=== PATIENT | female | born 1995 | race Caucasian/White ===

== ENCOUNTER → 2022-03-20 | Outpatient (CLI) | payer MEDICAID, SELFPAY ==
[2022-03-20 16:51] LABS: Amphetamine Urine VISTA NEGATIVE (<1000 ng/mL); Barbiturate Urine VISTA NEGATIVE (< 200 ng/mL); Benzodiazepine Urine VISTA NEGATIVE (< 200 ng/mL); Cocaine Urine VISTA NEGATIVE (< 300 ng/mL); Ecstacy Urine VISTA NEGATIVE (< 500 ng/mL); Methadone Urine VISTA NEGATIVE (< 300 ng/mL); PCP Urine VISTA NEGATIVE (< 25 ng/mL); THC Urine VISTA NEGATIVE (< 50 ng/mL); Vista UDS pH Range 7
[2022-03-22 21:07] LABS: Chlamydia By Nucleic Acid AMP Negative (Negative)
[2022-03-23 15:11] LABS: Gonococcus By Nucleic Acid AMP Negative (Negative)
== END | disposition home or self-care (01) ==
LOC: LABSPEC 15:37
PROVIDERS: Visit Provider Obstetrics & Gynecology
DX: O09.90 Supervision of high risk pregnancy, unspecified, unspecified trimester (principal)
CPT/HCPCS: 80307; 87086; 87491; 87591

== ENCOUNTER → 2022-03-23 | Outpatient (CLI) | payer MEDICAID, SELFPAY ==
[2022-03-23 14:59] LABS: Absolute Lymphocyte Count 1.48 X10^3/uL (0.83-4.51); Absolute Neutrophil Count 4.3 X10^3/uL (2.0-7.7); Basophil# 0.02 X10^3/uL; Basophil% 0.3 % (0-1); Eosinophils% 1.6 % (0-5); Hemoglobin 11.1 g/dL (12.0-15.0); Lymphocyte # 1.48 X10^3/ul (0.83-4.51); Mean Corp Hgb Conc 32.6 g/dL (32-36); Mean Corpuscular Hgb 28.5 pg (27.0-32.0); Mean Corpuscular Volume 87.2 fL (81-99); Mean Platelet Vol. 9.2 fl (6.2-12.0); Monocyte# 0.51 X10^3/uL; Monocyte% 7.9 % (0-10); NRBC Flagged by Analyzer 0 % (0-5); Neutrophil % 66.9 % (47-70); Platelet Count 323 K/mm3 (150-450); RBC Distribution Width CV 13.2 % (11.6-14.6); RBC Distribution Width SD 41.4 fl (35.1-43.9); White Blood Count 6.4 K/mm3 (4.4-11.0)
[2022-03-23 15:14] LABS: NATERA MAILED SPECIMEN
[2022-03-23 15:16] LABS: Glucose Challenge Gest 1H 50g 139 mg/dL (70-140)
[2022-03-23 16:41] LABS: HIV - WCH Non-Reactive (Nonreactive); Hepatitis B Surface Antigen Non-Reactive (Nonreactive); Hepatitis C Antibody Non-Reactive (Nonreactive); Rubella IgG Reactive (Nonreactive); Syphilis Antibodies Non-reactive
== END | disposition home or self-care (01) ==
LOC: LAB 14:08
PROVIDERS: Referring Provider Obstetrics & Gynecology; Visit Provider Obstetrics & Gynecology
DX: O09.90 Supervision of high risk pregnancy, unspecified, unspecified trimester (principal); Z31.430 Encounter of female for testing for genetic disease carrier status for procreative management
CPT/HCPCS: 36415; 82950; 85025; 86703; 86762; 86780; 86803; 86850; 86900; 86901; 87340

== ENCOUNTER 2022-04-04 10:01 | Outpatient (CLI) | payer MEDICAID, SELFPAY ==
[2022-04-04 12:16] LABS: Glucose GTT-Gestational 1 Hr 142 mg/dL (<190)
[2022-04-04 12:20] LABS: Glucose GTT-Gestation. Fasting 80 mg/dL (<105)
[2022-04-04 13:15] LABS: Glucose GTT-Gestational 2 Hr 138 mg/dL (<165)
[2022-04-04 14:05] LABS: Glucose GTT-Gestational 3 Hr 99 L (<145)
== END 2022-04-04 23:59 | disposition home or self-care (01) ==
LOC: LAB 10:03
PROVIDERS: Visit Provider Obstetrics & Gynecology
DX: Z13.1 Encounter for screening for diabetes mellitus (principal)
CPT/HCPCS: 36415; 82951; 82952

== ENCOUNTER → 2022-08-01 | Outpatient (CLI) | payer MEDICAID, SELFPAY ==
[2022-08-01 11:17] LABS: Absolute Lymphocyte Count 2.11 X10^3/uL (0.83-4.51); Absolute Neutrophil Count 5.5 X10^3/uL (2.0-7.7); Basophil# 0.01 X10^3/uL; Basophil% 0.1 % (0-1); Eosinophil# 0.05 X10^3/uL; Eosinophils% 0.6 % (0-5); Hematocrit 29.7 % (37-47); Hemoglobin 9.7 g/dL (12.0-15.0); Lymphocyte # 2.11 X10^3/ul (0.83-4.51); Lymphocyte % 25.8 % (19-41); Mean Corp Hgb Conc 32.7 g/dL (32-36); Mean Corpuscular Hgb 29.3 pg (27.0-32.0); Mean Corpuscular Volume 89.7 fL (81-99); Mean Platelet Vol. 8.6 fl (6.2-12.0); Monocyte# 0.43 X10^3/uL; Monocyte% 5.3 % (0-10); NRBC Flagged by Analyzer 0 % (0-5); Neutrophil # 5.54 X10^3/uL (2.7-7.7); Neutrophil % 67.8 % (47-70); Platelet Count 354 K/mm3 (150-450); RBC Distribution Width CV 12.9 % (11.6-14.6); RBC Distribution Width SD 42.2 fl (35.1-43.9); Red Blood Count 3.31 M/mm3 (4.2-5.4); White Blood Count 8.2 K/mm3 (4.4-11.0)
[2022-08-01 11:41] LABS: Glucose Challenge Gest 1H 50g 127 mg/dL (70-140)
[2022-08-01 12:21] LABS: HIV - WCH Non-Reactive (Nonreactive); Syphilis Antibodies Non-reactive
[2022-08-01 12:27] LABS: ALB/GLOB Ratio 0.7 RATIO (0.9-2.4); AST(SGOT) 16 U/L (15-37); Alanine Aminotransfer ALT/SGPT 18 U/L (13-56); Albumin, Serum 2.6 g/dL (3.2-5.0); Alkaline Phosphatase 92 U/L (45-117); Anion Gap 7 (5-15); BUN 4 mg/dL (7-18); BUN/Creat Ratio 6.8 RATIO (10-20); Calcium,Total 9.1 mg/dL (8.5-10.1); Chloride 105 mmol/L (98-107); Creatinine, Serum 0.59 mg/dL (0.55-1.02); EST Glomerular Filtration Rate 130 mL/min (>60); Est Glom Filt Rate - Afr Amer 157 mL/min (>60); Globulin 3.8 g/dL (2.2-4.2); Glucose 121 mg/dL (74-106); Lipase 209 U/L (73-393); Potassium 3.4 mmol/L (3.5-5.1); Protein, Total 6.4 g/dL (6.4-8.2); Sodium Level 139 mmol/L (136-145)
== END | disposition home or self-care (01) ==
PROVIDERS: Obstetrics & Gynecology; Referring Provider Obstetrics & Gynecology; Visit Provider Obstetrics & Gynecology
DX: O99.210 Obesity complicating pregnancy, unspecified trimester (principal); R10.11 Right upper quadrant pain; Z13.1 Encounter for screening for diabetes mellitus; Z3A.00 Weeks of gestation of pregnancy not specified
CPT/HCPCS: 36415; 80053; 82950; 83690; 85025; 86703; 86780

== ENCOUNTER 2022-09-04 15:17 | Outpatient (CLI) | payer MEDICAID, SELFPAY ==
[2022-09-04 15:37] VITALS: BMI 33.8
[2022-09-04 15:48] VITALS: TEMP 36.3
[2022-09-04 15:49] VITALS: BP 122/73; PULSE 104
[2022-09-04 16:20] LABS: ROM Internal Control Test YES-OK TO RESULT pt. (Internal QC); ROM Patient Test Negative (Negative)
--- NOTE | 2022-09-05 13:00 | OB.TRI.PN_ITS ---
Progress Notes Date of Service: 09/04/22 Progress Note: Patient presents for triage evaluation secondary to possible SROM FHT: 130 Moderate variability reactive no decelerations category I tracing [place]: No Contractions Assessment and plan: Reactive NST, reassuring maternal and status patient discharged to home to follow-up at next appointment. See problem list details for additional plan information. Laboratory Studies: Laboratory Tests 09/04/22 Range/Units 15:45 Vag Amniotic Fld Detect Negative (Negative) Charges/Coding Multi Select Codes Urinary/Genital Urinary/Genital CPT Codes: 76424-85 non-stress test Interp
== END 2022-09-04 16:42 | disposition home or self-care (01) ==
LOC: WPOUT 15:27 → WP 15:28
PROVIDERS: Referring Provider Advanced Practice Midwife; Visit Provider Advanced Practice Midwife
DX: O09.899 Supervision of other high risk pregnancies, unspecified trimester (principal); Z3A.00 Weeks of gestation of pregnancy not specified
CPT/HCPCS: 59025; 59050; 84112

== ENCOUNTER → 2022-09-13 | Outpatient (CLI) | payer MEDICAID, SELFPAY | END | disposition home or self-care (01) | LOC: LABSPEC 10:50 | PROVIDERS: Referring Provider Obstetrics & Gynecology; Visit Provider Obstetrics & Gynecology | DX: O09.90 Supervision of high risk pregnancy, unspecified, unspecified trimester (principal); Z3A.00 Weeks of gestation of pregnancy not specified | CPT/HCPCS: 87081 ==

== ENCOUNTER 2022-10-01 04:55 | Inpatient (IN) | payer MEDICAID, SELFPAY ==
[2022-10-01] VITALS (25 sets, daily range): BP systolic 97–127; BP diastolic 48–84; PULSE 54–134; RESP 16–20; TEMP 35.9–36.7; O2SAT 98–100; BMI 33.5
--- NOTE | 2022-10-01 05:59 | HP.PCM_ITS ---
History and Physical MR#: [id number] Acct: [id number] Name:SHARLENE SPANN Rep #: [id number] : 1995 ? ? Provider: Dr. Elisa Collins MD Age/Sex:? 26/F ? ? Location: [facility] – [place] Status: Signed Intake Vital Signs ? 03/20/2214:39 09/28/2308:51 09/28/2309:01 Height 5 ft 2 in 5 ft 3 in 5 ft 3 in Weight: ? 188 lb 6 oz ? BMI ? 33.3 ? BP ? 104/71 ? Intake Visit Reasons:?est ob 39w (scheduled c/s at 39w) Chief Complaint: 39 Week OB Brake Operator Required: No Is patient in pain?: No Allergies cephalexin [From Keflex] Allergy (Intermediate, Verified 09/28/22 09:50) Rash Medications sertraline 50 mg tablet (Zoloft) 50 mg PO DAILY 09/20/22 [History Confirmed 09/28/22] Last Menstrual Period: 01/11/22 Zika: Zika virus screening: Negative : No PFSH PFSH Medical History? Abnormal glucose affecting Anemia Surgical History? History of kidney surgery Hx of cholecystectomy Hx of dilation and curettage Hx of tonsillectomy Social History? adopted:? No household members:? significant other and children housing:? house number of children:? 2 current occupational status:? 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 No pets and animals:? No history of recent travel:? No sexually active:? Yes Smoking Status:? Former smoker quit date: 01/18/22 pack-years: 2 alcohol intake:? never substance use type:? does not use well-balanced diet:? daily or most days caffeine:? No eating out:? rarely or never during the past year weight has:? decreased > 10 lbs what type of physical activity do you participate in:? none boyd/yarsanism:? None seatbelt use:? sometimes do you feel safe at home:? Yes additional social history:? BF Abdi Raymond- hot strip finisher History ? ? ? 4 ?D Elective abortions ? Hx Para ? ? ? 2 ? Spontaneous abortions ? ? ? 1 Hx # Term Pregnancies ? Ectopic pregnancies ? Hx # Pregnancies ? Multiple births ? # of living children ? ? ? 2 Past Pregnancies Del. Date Name GA/Weeks Outcome Route Bth Weight Gen Labor Lgth Anesthesia Del Locatn Provider FOB 09/14/15 Miscarriage <8 weeks ? 02/25/18 Akash 38 live - full term 7#7o z Male ? epidural [facility] Dr. Hernando Hauser 07/01/19 Anjum 38 live - full term 7#10 oz Female ? spinal [facility] Dr. Hernando Hauser Delivery Date: 02/25/18? Last Updated by: Bhavani Staton ? ? ? cs due to breech Delivery Date: 07/01/19? Last Updated by: Bhavani Staton ? ? ? planned cs HPI est ob 39w (scheduled c/s at 39w) Details: SHARLENE CASPER is a 26 year old who presents for routine OB visit. OB Visit JAVAN Calculator ? Estimated Delivery Date Method Current WG Current Estimate 10/08/22 Ultrasound #1 38w 4d Other Estimates 10/18/22 LMP (Certain) 37w 1d Expected Delivery Route/Plan RLTCS Specific Issue/Plans Covid status: unvaccinated Flu vaccine: unvaccinated, declines Tdap vaccine: declined Rhogam: na LARC form signed: movement and labor precautions reviewed. Problem list reviewed and updated with the most current plan of care details and appropriate orders placed.? Relevant counseling for the gestational age provided. Continue routine care and follow up unless otherwise noted in visit notes/problem list details Initial Weight:?Not Recorded Date -?-?-?-?-?-?-?-?-?-?-?-?- EGA Weight BP Urine Prot -?-?-?-?-?-?-?-?-?-?-?-?- Glucose FHR FuHt Pres Dilation -?-?-?-?-?-?-?-?-?-?-?-?- Effaced St Visit Note 03/20/22-?-?-?-?-?-?-?-?-?-?-?-?- 11w 1d 189 lb 4 oz 115/73 -?-?-?-?-?-?-?-?-?-?-?-?- ? -?-?-?-?-?-?-?-?-?-?-?-?- ? ? JV- CRL measuring ahead by over a week. new javan given. wants genetic and carrier testing. 04/19/22-?-?-?-?-?-?-?-?-?-?-?-?- 15w 3dA 189 lb 8 oz 113/67 Negative -?-?-?-?-?-?-?-?-?-?-?-?- Negative 147 ? ? -?-?-?-?-?-?-?-?-?-?-?-?- ? ? JV- still having nausea on zofran. She will try the [facility] unisom + b6. normal NIPT and carrier testing. 07/12/22-?-?-?-?-?-?-?-?-?-?-?-?- 27w 3d 186 lb 6 oz 114/74 Negative -?-?-?-?-?-?-?-?-?-?-?-?- Negative 145 ? ? -?-?-?-?-?-?-?-?-?-?-?-?- ? ? SM_ no vb lof good fm no regular ctx plan cbc gct next visit and scheduled cs 08/01/22-?-?-?-?-?-?-?-?-?-?-?-?- 30w 2d 187 lb 2 oz 113/78 Negative -?-?-?-?-?-?-?-?-?-?-?-?- Negative 145 ? ? -?-?-?-?-?-?-?-?-?-?-?-?- ? ? JV- pt is having some RUQ pain, has had jessika after last . will order cmp and lipase, recommend low fat diet and increase hydration, She states that tums work, will order pepcid. normal gct but is anemic with hg 9.7. recommended OTC twice a day iron 09/13/22-?-?-?-?-?-?-?-?-?-?-?-?- 36w 3d 188 lb 134/84 Negative -?-?-?-?-?-?-?-?-?-?-?-?- Negative 147 ? Cephalic 0-?-?-?-?-?-?-?-?-?-?-?-?- ? ? JV- no lof ,vaginal bleeding, or dec fm. did not do labs because felt better. briefly discussed and how that would look. she is leaning toward rpt section was just worried about being strapped down and feeling trapped. talked about soothing music, no straps, etc, 09/20/22-?-?--?-?-?-?-?-?-?-?-?-?- 37w 3d 187 lb 6 oz 124/83 Negative -?-?-?-?-?-?-?-?-?-?-?-?- Negative 145 37 Cephalic -?-?-?-?-?-?-?-?-?-?-?-?- ? ? SM- no vb lof good fm no regular ctx 09/28/22-?-?-?-?-?-?-?-?-?-?-?-?- 38w 4d 188 lb 6 oz 104/71 Negative -?-?-?-?-?-?-?-?-?-?-?-?- Negative 140 38 Cephalic -?-?-?-?--?-?-?-?-?-?-?-?- ? ? SM- no vb lof good fm no regular ctx ACOG First Trimester First Trimester: Desire for , Alcohol, Tobacco Cessation, Illicit/Recreational Drug/Substance Use, Intimate Partner Violence, Barriers to care, Unstable Housing, Communication Barriers, Environmental/Work Hazards, Anticipated Course of Care, Toxoplasmosis Precations, Use of Any medications, Sexual activity, Exercise, Dental Care, Sauna/Hot tub use, Seat Belt use, Childbirth classes/Hospital facilities, , Travel, Indications for Ultrasound and Screening for Aneuploidy Second Trimester Second Trimester: Signs and Symptoms of Labor, Selecting a care provider, Reproductive Life Planning & Contreception, Care Planning, Depression/Anxiety and Intimate Partner Violence; Discussed Tobacco Cessation Third Trimester Third Trimester: Pain Management Plans, Labor support person(s), Immediate Larc, Movement Monitoring, Signs and Symptoms of Preeclampsia and [place] [employer] [facility] Diagnostics Diagnostics: ?? ? Blood Type O POSITIVE ?? ? Antibody Screen NEGATIVE ?? ? Gest Glucose Tolerance ?MG/DL ?? ? Glucose 1 Hr 50 gm 127 mg/dL (70-140) ?? ? HIV 1&2 Antibody Non-Reactive? (Nonreactive) ?? ? Rubella IgG Antibody Reactive? (Nonreactive) ?? ? Hgb 9.7 g/dL (12.0-15.0)? L ?? ?D Hct 29.7 % (37-47)? L ?? ? Chlamydia DNA (HILARIA) Negative? (Negative) ?? ? N.gonorrhoeae DNA (HILARIA) Negative? (Negative) Details: HIV: Urine Culture: Sequential Screen: NIPT Screen: ROS Const Reports system reviewed and no additional complaints, except as documented Card Reports system reviewed and no additional complaints, except as documented Resp Reports system reviewed and no additional complaints, except as documented GI Reports system reviewed and no additional complaints, except as documented and Reports nausea Reports system reviewed and no additional complaints, except as documented Musc Reports system reviewed and no additional complaints, except as documented Exam Const General: cooperative, healthy appearing, comfortable and anxious [facility] Head: normal to inspection Nose: external nose normal Face and sinus: normal facial exam Neck Neck: normal visual inspection, full ROM and no lymphadenopathy Thyroid: thyroid normal Chest Chest palpation & inspection: normal inspection of the chest Resp Effort & Inspection: normal respiratory effort GI Inspection: normal to inspection Palpation: soft and other (gravid uterus) Other: vertex and appropriate size for gestational age Other: Cervical Exam: Extrem General: pedal edema Results POC Urinalysis 2 Dip? (Clinic) Office Urine Glucose Negative ? ? Last Edit by Whit Rivers on 09/28/22 10:04 Office Urine Protein Negative ? ? Last Edit by Whit Rivers on 09/28/22 10:04 Coding Level of Care Code OB Routine Diagnoses Supervision of high risk , antepartum? O09.90 Anemia? D64.9 Right upper quadrant pain? R10.11 Obesity affecting ? O99.210 ? Z3A.38 ? ? ? Weeks of gestation: 38 weeks History of ? 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 F41.9 Assessment and Plan Assessment and Plan (1) Supervision of high risk , antepartum: ?Status:?Acute ?Comment: PRR JAVAN 10/07/22 girl Anjum Lancasterlandry Abdi (2) Anemia: ?Status:?Acute ?Comment: Repeat 4 weeks. (3) Right upper quadrant pain: ?Status:?Acute (4) Obesity affecting : ?Status:?Acute ?Comment: nl 3 hr gtt encouraged healthy weight gain. (5) : ?Status:?Acute ?Qualifiers: ?Weeks of gestation:?38 weeks? Qualified Code(s):?Z3A.38 - 38 weeks gestation of ?Comment: NIPT low risk, carrier testing neg. , abnormal 1 HR GCT, 04/04 Nl 3 HR GTT, nl growth, nl 1 hr GTT 07/31. GBS neg, (6) History of : ?Status:?Acute ?Comment: X's 2. Breech in first ,repeat second, desires 3rd rpt at 39 weeks - 10/01/22 @ 7 am (7) Post depression: ?Status:?Acute ?Comment: Off medication x's 1 year (8) Anxiety: ?Status:?Acute ?Comment: zoloft start, encouraged counseling. ? ? ? Orders: Orders POC Urinalysis 2 Dip? (Clinic) Today ? ? plan RLTCS UPDATE- I have seen the patient and performed any clinically relevant updates to the history and physical exam. Elisa Collins MD
--- NOTE | 2022-10-01 05:59 | EX.PCM.OBRPT ---
Assessment & Plan (1) Supervision of high risk , antepartum: COMMENT: PRR JEROME 10/07/22 girl Jose BLAS Anjum Bustos (2) Anemia: COMMENT: Repeat 4 weeks. (3) Right upper quadrant pain: (4) Obesity affecting : COMMENT: nl 3 hr gtt encouraged healthy weight gain. (5) : QUALIFIERS: Weeks of gestation: 38 weeks Qualified Code(s): Z3A.38 - 38 weeks gestation of COMMENT: NIPT low risk, carrier testing neg. , abnormal 1 HR GCT, 04/04 Nl 3 HR GTT, nl growth, nl 1 hr GTT 07/31. GBS neg, (6) History of : COMMENT: X's 2. Breech in first ,repeat second, desires 3rd rpt at 39 weeks - 10/01/22 @ 7 am (7) Post depression: COMMENT: zoloft (8) Anxiety: COMMENT: zoloft encouraged counseling. (9) delivery delivered: COMMENT: RLTCS girl Jose 39 SM Maternal Data Information JEROME Calculator Estimated Delivery Date Method Current WG Current Estimate 10/08/22 Ultrasound #1 39w 1d Other Estimates 10/18/22 LMP (Certain) 37w 5d Final JEROME Source: LMP Details Operative Information Date of Procedure: 10/01/22 Pre-Operative Diagnosis: Previous Post-Operative Diagnosis: same Indications for : Repeat Elective Indications Narrative: Surgeon: Elisa Collins MD Classification: Scheduled Procedure Type: low transverse Type of Anesthesia: Spinal Special Medications: none Antibiotic Given: Ancef 2 grams IV x1 Drain: Palomares to straight drain Estimated Blood Loss: 400 Fluids Replaced: crystalloid Findings Description of Procedure: Spinal anesthesia was placed without difficulty. Palomares catheter was placed. The patient was placed in the dorsal supine position with leftward tilt. Patient was prepped and draped in the normal sterile fashion. Pfannenstiel skin incision was made with the scalpel and carried through to the underlying layer of fascia with the scalpel. Fascia was nicked in the midline and the incision extended laterally. The rectus bellies were dissected off superiorly and inferiorly with out complication both sharply and bluntly. The peritoneum was entered digitally. The incision was stretched and a low transverse uterine incision was made with the scalpel. The 's head was delivered atraumatically followed by the anterior and posterior shoulders without complication the rest of the delivered. The cord was clamped and cut and the infant was handed off to awaiting nurse. The placenta was delivered spontaneously immediately following and was noted to be intact and have a three-vessel cord. The uterus was exteriorized cleared of all clots and debris, and the incision was closed in a single layer closure using #1 Monocryl. The ovaries and fallopian tubes were noted to be within normal limits. The uterus was returned to the maternal abdomen and gutters were cleared of all clots and debris. The peritoneum was closed with 3-0 Monocryl in a running fashion. Gloves were changed prior to fascial closure. Fascia was closed with 0 PDS in a running fashion. Subcutaneous tissue was copiously irrigated and the skin was closed with 3-0 Monocryl in a subcuticular fashion. Mepilex dressing was applied without complication. Patient was taken to recovery in stable condition. It was discussed with the patient that based on the clinical information obtained during this encounter, combined with her history, at this time I would recommend cesareans for future deliveries if further pregnancies are desired. Amniotic Membrane Rupture Type: Artificial Amniotic Fluid Description: Clear Placenta Disposition: [facility] Cord Vessel Description: 3 Vessels Delayed Cord Clamping: Yes Complications Risks of Surgery Discussed w/Patient: Bleeding, Infection, Need for Future C-Sections and Injury to surrounding structure(s) including bowel and bladder Vaginal Delivery Complication Complications: None Admit VTE Documentation VTE Present on Admission: No VTE Mechan Device Prophylaxis: SCD's Procedures Urinary/Genital [id number]: 17126 delivery+PP Care([facility])
--- NOTE | 2022-10-01 06:01 | DCINST_ITS ---
Discharge Instructions Diet Discharge Diet: No restrictions Activity Discharge Activity: Return to Normal Activity, May Drive (when pain free and off narcotic pain meds), May Shower and May Take a Tub Bath (in 4 weeks) May resume sexual activity in: 6 weeks Weight Bearing Status: Full weight bearing Lifting Restrictions: under 30 lbs for 6 weeks Dressing / Incision Call your doctor if your incision/area has: Continuous Slow Oozing, Sudden Increased Bleeding, Increased Pain/ Swelling, Increased Redness, Foul Smelling Discharge and - Call your doctor if you observe: Fever of 101 or Higher, Using more than 1 pad per hour, Shortness of breath, Chest pain and Uncontrolled pain Suture Line Care: Avoid Pulling/Pushing and Avoid Pinching/Bending Change Dressing in: 1 week (leave open to air after removed) Remove Dressing in: 1 week (if present) Cleanse incision/area with: Soap & Water and Keep Dressing Clean & Dry Follow Up Care Please Follow Up With: Elisa Collins MD When: Call to make an appointment with your doctor for a postop visit in 2 and 6 weeks. Test Results: Test results from this visit will be discussed in further detail at your follow- up appointment, if applicable. Discharge Plan Admission Admit Date/Time: 10/01/22 04:55 Attending Provider: Elisa Collins Primary Care Provider: Maximiliano PhysicianNishi Primary Discharge Orders/Prescriptions Prescriptions: New oxycodone-acetaminophen [Percocet] 5-325 mg tablet 1 tab PO Q6H PRN (Reason: pain) 7 Days Qty: 20 0RF naproxen [naproxen] 500 mg tablet 500 mg PO BID PRN PRN (Reason: Pain) Qty: 30 1RF Continued sertraline [Zoloft] 50 mg tablet 50 mg PO DAILY Rx Instructions: 1/2 pill Referrals / Follow Up: Care PhysicianNishi Primary [Primary Care Provider] -
[2022-10-01 06:38] LABS: Absolute Neutrophil Count 5.6 X10^3/uL (2.0-7.7); Basophil# 0.03 X10^3/uL; Basophil% 0.4 % (0-1); Eosinophil# 0.05 X10^3/uL; Eosinophils% 0.6 % (0-5); Hematocrit 30.1 % (37-47); Hemoglobin 9.7 g/dL (12.0-15.0); Lymphocyte % 25.7 % (19-41); Mean Corp Hgb Conc 32.2 g/dL (32-36); Mean Corpuscular Volume 89.9 fL (81-99); NRBC Flagged by Analyzer 0 % (0-5); Neutrophil # 5.62 X10^3/uL (2.7-7.7); Neutrophil % 65.7 % (47-70); Platelet Count 294 K/mm3 (150-450); RBC Distribution Width CV 14.1 % (11.6-14.6); RBC Distribution Width SD 45.8 fl (35.1-43.9); Red Blood Count 3.35 M/mm3 (4.2-5.4); White Blood Count 8.6 K/mm3 (4.4-11.0)
[2022-10-01] MEDS: Sodium Citrate/Citric Acid 30 ML UDC PO (06:55)
[2022-10-01] MEDS: Acetaminophen 500 MG Tablet PO ×3 (06:55→18:27)
[2022-10-01] MEDS: Clindamycin 900 MG/50 ML BAG 75 MG IV (07:15)
[2022-10-01 07:17] LABS: Syphilis Antibodies Non-reactive
[2022-10-01] MEDS: Ketorolac 30 MG/ML Syringe IV ×3 (09:10→21:57)
[2022-10-01] MEDS: Lactated Ringers 1,000 ML 50 ML IV (12:16)
[2022-10-01] MEDS: 0.9% Saline Lock 10 ML Syringe IV ×2 (17:40→21:57)
[2022-10-01] MEDS: Sertraline 50 MG Tablet PO (23:00)
[2022-10-02 00:39] VITALS: BP 102/55; PULSE 68; RESP 16; TEMP 36.8
[2022-10-02] MEDS: Acetaminophen 500 MG Tablet PO ×2 (00:43→07:11)
[2022-10-02] MEDS: Ketorolac 30 MG/ML Syringe IV (03:24)
[2022-10-02] MEDS: 0.9% Saline Lock 10 ML Syringe IV (03:24)
[2022-10-02 03:34] VITALS: BP 104/66; PULSE 66; RESP 16; TEMP 36.4; O2SAT 99
[2022-10-02 05:21] LABS: Absolute Neutrophil Count 6.8 X10^3/uL (2.0-7.7); Basophil# 0.04 X10^3/uL; Basophil% 0.4 % (0-1); Eosinophil# 0.12 X10^3/uL; Eosinophils% 1.2 % (0-5); Hematocrit 30.2 % (37-47); Hemoglobin 9.6 g/dL (12.0-15.0); Lymphocyte % 23.4 % (19-41); Mean Corp Hgb Conc 31.8 g/dL (32-36); Mean Corpuscular Hgb 28.8 pg (27.0-32.0); Mean Corpuscular Volume 90.7 fL (81-99); Mean Platelet Vol. 8.9 fl (6.2-12.0); Monocyte# 0.57 X10^3/uL; Monocyte% 5.8 % (0-10); NRBC Flagged by Analyzer 0 % (0-5); Neutrophil # 6.76 X10^3/uL (2.7-7.7); Neutrophil % 68.9 % (47-70); Platelet Count 279 K/mm3 (150-450); RBC Distribution Width CV 14.1 % (11.6-14.6); RBC Distribution Width SD 46.4 fl (35.1-43.9); Red Blood Count 3.33 M/mm3 (4.2-5.4); White Blood Count 9.8 K/mm3 (4.4-11.0)
--- NOTE | 2022-10-02 07:23 | PN.OBGYN_ITS ---
Subjective Subjective Patient doing well without complaints. Tolerating PO. Ambulating and voiding without difficulty. Feeding well. Denies chest pain, shortness of breath, calf pain/swelling, fevers, chills, lightheadedness. Objective Data Objective Data Vital Signs: Vital Signs Temp Pulse Resp BP Pulse Ox O2 Del Method 97.6 F L 66 16 104/66 99 Room Air 10/02/22 03:34 10/02/22 03:34 10/02/22 03:34 10/02/22 03:34 10/02/22 03:34 10/02/22 03:34 Oxygen Delivery Method Room Air Weight: 189 lb 2 oz Body Mass Index (BMI) 33.5 Intake & Output: Intake and Output for Last 24 Hours 09/30/22 10/01/22 10/02/22 23:59 23:59 23:59 Intake Total 372.33 / 372.33 Output Total 3825 / 3825 Balance -3452.67 / -3452.67 Lab / Micro Data Attestation: I reviewed the patient's lab results. Result Diagrams: 10/02/22 05:10 Labs: Laboratory Results - last 24 hr 10/02/22 05:10: WBC 9.8, RBC 3.33 L, Hgb 9.6 L, Hct 30.2 L, MCV 90.7, MCH 28.8, MCHC 31.8 L, RDW Std Deviation 46.4 H, RDW Coeff of Giancarlo 14.1, Plt Count 279, MPV 8.9, Immature Gran % (Auto) 0.300, Neut % (Auto) 68.9, Lymph % (Auto) 23.4, [place] % (Auto) 5.8, Eos % (Auto) 1.2, Baso % (Auto) 0.4, Absolute Neuts (auto) 6.8, Absolute Lymphs (auto) 2.30, Nucleated RBC % 0 ROS Constitutional Constitutional: Reports systems reviewed and no addt'l complaints, except as documented; Denies anorexia or headache(s) Cardiovascular Cardiovascular: Reports systems reviewed and no addt'l complaints, except as documented; Denies dizziness, dyspnea, nausea or tachypnea Respiratory/Chest Respiratory/Chest: Reports systems reviewed and no addt'l complaints, except as documented; Denies cough, dyspnea, shortness of breath at rest or tachypnea Gastrointestinal Gastrointestinal: Reports systems reviewed and no addt'l complaints, except as documented; Denies abdominal pain, constipation or nausea Genitourinary Genitourinary: Reports systems reviewed and no addt'l complaints, except as documented; Denies burning urination, difficulty urinating, dysuria, urinary frequency or urinary incontinence Musculoskeletal Musculoskeletal: Reports systems reviewed and no addt'l complaints, except as documented Integumentary Integumentary: Reports systems reviewed and no addt'l complaints, except as documented Neurologic Neurologic: Reports systems reviewed and no addt'l complaints, except as documented; Denies abnormal speech, dizziness or headache(s) Psychiatric Psychiatric: Reports systems reviewed and no addt'l complaints, except as documented Endocrine Endocrinology: Reports systems reviewed and no addt'l complaints, except as documented Hematologic/Lymphatic Hematologic/Lymphatic: Reports systems reviewed and no addt'l complaints, except as documented Physical Exam Const alert, oriented x3 and no apparent distress Neck full ROM Resp normal respiratory effort, normal air movement and no retractions Effort and Inspection: able to speak in complete sentences and symmetric chest movement GI soft to palpation Inspection: incision intact Bladder / Kidney Exam: bladder normal to palpation Uterus Palpation: uterus fundus firm (U) Extremity normal to inspection and full ROM Psych mental status grossly normal, thought process normal and cooperative Assessment & Plan (1) delivery delivered: COMMENT: JESSICA girl Jose 39 SM PLAN: s/p LTCS PPD # 1 1. routine post care 2. breast feeding- support given 3. rh positive 4. rubella immune 5. discharge home (2) Post depression: COMMENT: zoloft PLAN: stable (3) Anxiety: COMMENT: zoloft encouraged counseling. Charges/Coding Multi Select Codes Urinary/Genital Urinary/Genital CPT Codes: No Charge
--- NOTE | 2022-10-02 07:26 | DCINST_ITS ---
Discharge Instructions Diet Discharge Diet: No restrictions Activity May resume sexual activity in: 6 weeks Weight Bearing Status: Full weight bearing Dressing / Incision Call your doctor if your incision/area has: Continuous Slow Oozing, Sudden Increased Bleeding, Increased Pain/ Swelling, Increased Redness, Foul Smelling Discharge and - Call your doctor if you observe: Fever of 101 or Higher, Using more than 1 pad per hour, Shortness of breath, Chest pain and Uncontrolled pain Suture Line Care: Avoid Pulling/Pushing and Avoid Pinching/Bending Remove Dressing in: 1 week Cleanse incision/area with: Soap & Water and Keep Dressing Clean & Dry Follow Up Care Please Follow Up With: Elisa Collins MD When: in 2 weeks for incision check and at 6 weeks for visit Test Results: Test results from this visit will be discussed in further detail at your follow- up appointment, if applicable. Discharge Plan Admission Admit Date/Time: 10/01/22 04:55 Attending Provider: Elisa Collins Primary Care Provider: Care Physician,No Primary Discharge Orders/Prescriptions Prescriptions: New oxycodone-acetaminophen [Percocet] 5-325 mg tablet 1 tab PO Q6H PRN (Reason: pain) 7 Days Qty: 20 0RF naproxen [naproxen] 500 mg tablet 500 mg PO BID PRN PRN (Reason: Pain) Qty: 30 1RF Continued sertraline [Zoloft] 50 mg tablet 50 mg PO DAILY Rx Instructions: 1/2 pill Referrals / Follow Up: Care Physician,No Primary [Primary Care Provider] - Disposition Disposition (needs filled in before D/C Order can be placed): Home, Self Care
[2022-10-02 08:15] VITALS: BP 109/70; PULSE 83; RESP 16; TEMP 36.5; O2SAT 97
[2022-10-02] MEDS: Ibuprofen 600 MG Tablet PO (09:28)
[2022-10-02 12:00] VITALS: BP 112/75; PULSE 77; RESP 16; TEMP 36.8; O2SAT 98
--- NOTE | 2022-10-02 16:47 | CASEMGMT ---
Social Work Assessment Labor and Delivery Unit Patient Address: [address] [place], [place] [address] Phone number: [phone] Date of Referral: 10/01/2022 Time of Referral: 1920 Referred By: Dr. Elisa Collins Date of Intervention: 10/02/2022 Time of Intervention: Approximately 2768-7251 Reason for Referral: History of depression, anxiety History obtained from: Medical records and mother of baby (MOB) Kacey Beltran; father of baby (FOB) Abdi Raymond present for conversation. Household composition: MOB, FOB and MOB's 2 older children. Home situation is reported as safe and adequate. Patient's parent/guardian status: CEE is a 26-year-old single female, involved with the FOB Abdi Raymond for the last 2 years. Upon admission MOB denied concerns of domestic violence. No indication during this assessment. Infant is the first child for MOB and FOB together. The third child for MOB. Minor children in the home include: Akash (02/25/2018) and Viviana (07/01/2019) Analisa-father is reported as Tyler Analisa and not involved. infant girl Susu Raymond (10/01/2022) and father is Abdi Raymond. Medical History: CEE is 4, para 2 now 3 after delivering infant girl. care started at 11 weeks with the noted 7 visits between 11 and 38 weeks. There was a gap in care between 15 and 27 weeks. Delivery via section at 39 weeks. 's Apgars were 8 and 9 at 1 and 5 minutes of life respectively. weight 3285 g. Plan to use pediatric consultants for aftercare of the baby. Educational Status: CEE is a high school graduate. No reported concerns with C or comprehension. 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 Supplies: MOB and FOB report to have necessary supplies to care for the baby including car seat and a safe sleep space. Childcare/Caregiver(s): MOB and FOB will be the primary caregivers. MOB's and will be brim stiffener when MOB returns to work has MOB's daycare centers getting rid of the term. Transportation: No reported concerns with transportation. Both parents drive. Programs/Agencies Involved: S for medical and food card. CEE has a history of WIC though is not current. MOB excepted information on help me grow but declined a referral. Children Services/Legal Issues: MOB and FOB deny any legal issues. MOB denies any history of children services involvement. Behavioral Health Issues: Mental Health History: MOB reports a history of being an anxious person and having anxiety after second child was born. MOB reports has been treated with sertraline and this medication is working well. Has been on this medication throughout the and plans to stay on it in the timeframe. MOB does have a history of counseling but not currently. Would be willing to return if needed. Substance Use History: MOB denies any type of substance use history. Does not use tobacco. Family History: Not discussed. Drug Screens: Maternal drug screen negative on 03/20/2022. No testing on infant. Family/Social Stressors: No reported stressors at this time. Support Systems: MOB reports good support from the FOB, MOB's parents and the FOB's mother. FOB is to be off work for 1 week to help with the transition home. Depression/Shaken Baby/Safe Sleeping: Safe sleeping and shaken baby reviewed. Written material provided for home-going. Reviewed mood and anxiety disorders, risk factors, and that both mothers and fathers can be at risk for this complication. ASSESSMENT: Met with MOB and FOB in room, introducing to self and social work role. Parents willing and agreeable to speak with group social worker. MOB with good eye contact. MOB appearing relaxed and reporting to feel mood and anxiety is stable at this point. MOB reports plan to remain on Zoloft and reports willingness to return back to counseling if needed in the future. MOB and FOB reported to have necessary supplies to care for the infant, denies any concerns about basic needs, housing or transportation. MOB reports to feel she has good support in place. No voiced concerns by staff regarding parent-child interactions or bonding. Provided [facility] resource list and a packet on mood and anxiety disorders. PLAN: MOB and infant will discharge home with resources provided for home-going. No other services requested or indicated. -SLICK Torres MSW *This note was generated with [employer] software. It may contain incorrect words, spelling, and punctuation that were not noted in review of the chart prior to signing*
== END 2022-10-02 13:40 | disposition home or self-care (01) | DRG 540 ==
PROVIDERS: Admitting Provider Obstetrics & Gynecology; Visit Provider Obstetrics & Gynecology
PROC: 10D00Z1 Extraction of Products of Conception, Low, Open Approach (ICD-10-PCS; CPT 59514; principal; 2022-10-01 06:55)
DX: O34.219 Maternal care for unspecified type scar from previous cesarean delivery (principal); F41.9 Anxiety disorder, unspecified; Z87.891 Personal history of nicotine dependence; O99.02 Anemia complicating childbirth; O99.344 Other mental disorders complicating childbirth; Z37.0 Single live birth; Z3A.39 39 weeks gestation of pregnancy
CPT/HCPCS: 59025; 85025; 86780; 86850; 86900; 86901; 99221; J7120; A4216; G0378

== ENCOUNTER → 2022-10-15 | Outpatient (CLI) | payer MEDICAID, SELFPAY ==
[2022-10-15 11:26] LABS: Absolute Lymphocyte Count 2.67 X10^3/uL (0.83-4.51); Absolute Neutrophil Count 5.2 X10^3/uL (2.0-7.7); Basophil% 1.2 % (0-1); Eosinophil# 0.12 X10^3/uL; Eosinophils% 1.4 % (0-5); Hematocrit 40.5 % (37-47); Lymphocyte # 2.67 X10^3/ul (0.83-4.51); Lymphocyte % 31.2 % (19-41); Mean Corp Hgb Conc 32.1 g/dL (32-36); Mean Corpuscular Hgb 28.2 pg (27.0-32.0); Mean Corpuscular Volume 87.9 fL (81-99); Mean Platelet Vol. 8.3 fl (6.2-12.0); Monocyte% 5.8 % (0-10); NRBC Flagged by Analyzer 0 % (0-5); Neutrophil # 5.15 X10^3/uL (2.7-7.7); Neutrophil % 60.2 % (47-70); Platelet Count 556 K/mm3 (150-450); RBC Distribution Width CV 13.1 % (11.6-14.6); RBC Distribution Width SD 42.4 fl (35.1-43.9); Red Blood Count 4.61 M/mm3 (4.2-5.4); White Blood Count 8.6 K/mm3 (4.4-11.0)
== END | disposition home or self-care (01) ==
PROVIDERS: Referring Provider Nurse Practitioner Women's Health; Visit Provider Nurse Practitioner Women's Health
DX: L24.A9 Irritant contact dermatitis due friction or contact with other specified body fluids (principal); Z3A.30 30 weeks gestation of pregnancy
CPT/HCPCS: 36415; 85025; 87070; 87075; 87077; 87186; 87205

== ENCOUNTER → 2022-12-05 | Outpatient (CLI) | payer MEDICAID, SELFPAY ==
[2022-12-10 16:37] LABS: HPV Reflexed? NOT INDICATED
== END | disposition home or self-care (01) ==
LOC: LABSPEC 14:06
PROVIDERS: Referring Provider Nurse Practitioner Women's Health; Visit Provider Nurse Practitioner Women's Health
DX: Z12.4 Encounter for screening for malignant neoplasm of cervix (principal)
CPT/HCPCS: 88175; G0145